=== PATIENT | male | born 1960 | race Caucasian/White ===

== ENCOUNTER → 2021-09-06 16:30 | Outpatient (CLI) | payer OTHER, SELFPAY ==
[2021-09-06 18:21] LABS: PSA,Total - Annual Screen 2.63 ng/mL (0.00-4.00)
== END ==
PROVIDERS: PCP Family Medicine; Visit Provider Family Medicine
DX: I86.1 Scrotal varices (principal); Z12.5 Encounter for screening for malignant neoplasm of prostate
CPT/HCPCS: 36415; 84153; G0103